=== PATIENT | female | born 1970 | race Caucasian/White ===

== ENCOUNTER 2016-10-03 18:32 | Emergency (ER) | payer OTHER, MEDICAID ==
[~2016-10-03] VITALS: Ht 172.7 cm; Wt 125.0 kg
[2016-10-03 18:38] VITALS: BP 162/118
[2016-10-03] MEDS ORDERED: KETOROLAC 30 MG/1 ML ONE (19:00)
[2016-10-03] MEDS ORDERED: KETOROLAC 30 MG/1 ML IM ONE (19:00)
[2016-10-03] MEDS ORDERED: DIAZEPAM 5 MG TABLET PO ONE (19:00)
[2016-10-03] MEDS ORDERED: DIAZEPAM 5 MG TABLET ONE (19:00)
[2016-10-03] MEDS ORDERED: HYDROcodone/APAP 5/325 TABLET PO STA (19:11)
== END 2016-10-03 20:12 | disposition home or self-care (01) ==
LOC: ED 19:50
DX: M54.42 Lumbago with sciatica, left side (principal); F17.200 Nicotine dependence, unspecified, uncomplicated
CPT/HCPCS: 72110; 93005; 96372; 99284; J1885